=== PATIENT | male | born 1990 | race African-American/Black ===

== ENCOUNTER 2018-04-02 04:09 | Emergency (ER) | payer BC, MEDICAID ==
[~2018-04-02] VITALS: Ht 180.3 cm; Wt 86.0 kg
[2018-04-02] MEDS ORDERED: LIDOCAINE HCL 1% 20ML VIAL (Pyxis) INJ INFIL ONE ×2 (07:00→07:45)
[2018-04-02] MEDS ORDERED: HYDROCODONE/ACETAMINOPHEN 10/325MG TABLET PO ONE (07:00)
[2018-04-02] MEDS ORDERED: TETANUS, DIPHTHERIA, PERTUSSIS VAC/PF 0.5ML (>7YR OLD) IM ONE (07:00)
[2018-04-02 08:38] VITALS: BP 110/72
[2018-04-02] MEDS ORDERED: BACITRACIN ZINC OINT UDPKT TOP ONE (08:45)
== END 2018-04-02 08:59 | disposition home or self-care (01) ==
LOC: ER 04:56
DX: S01.81XA Laceration without foreign body of other part of head, initial encounter (principal); S80.212A Abrasion, left knee, initial encounter; F12.10 Cannabis abuse, uncomplicated; W52.XXXA Crushed, pushed or stepped on by crowd or human stampede, initial encounter; Y93.89 Activity, other specified; Y92.89 Other specified places as the place of occurrence of the external cause; Y99.8 Other external cause status; Z98.890 Other specified postprocedural states
CPT/HCPCS: 12013; 70450; 70486; 90471; 90715; 99284; J3490